=== PATIENT | female | born 1985 | race Caucasian/White ===

== ENCOUNTER 2019-07-31 23:04 | Emergency (ER) | payer SELFPAY ==
[2019-07-31 23:13] VITALS: BP 127/80; PULSE 76; RESP 18; TEMP 36.6; O2SAT 100; BMI 29.3
--- NOTE | 2019-07-31 23:15 | W.ED.UPPEXIN ---
HPI - Extremity Injury (Upper) General: Chief Complaint: Wound/Laceration Stated Complaint: L THUMB INJURY Time Seen by Provider: 07/31/19 23:13 History of Present Illness: HPI narrative: injury to left finger, occured prior to arrival. Patient reports that she was trying to open up a bottle with a knife and it slipped and cut her dorsal left thumb. Patient appears well. Patient appears in no acute distress. Review of Systems General: Reports: 10 or more systems reviewed and unremarkable except in HPI and below Skin/Breast: Reports: other (laceration) PFSH ED PFSH: Statuses (acute, chronic, etc) shown below reflect problem list status as previously entered and may not be historically accurate Social History Smoking and tobacco status: never smoked Physical Exam Const: COMMON NORMALS: no apparent distress and oriented x3 GENERAL APPEARANCE: cooperative HENMT: COMMON NORMALS: normocephalic, external ears normal, EAC's normal, TM's normal bilaterally and external nose normal HEAD & SCALP: normal to inspection and normocephalic FACE & SINUS: normal facial exam NOSE: external nose normal GENERAL EAR: hearing not grossly impaired EXTERNAL EAR: Yes external ears normal EXTERNAL AUDITORY CANAL: EAC's normal TYMPANIC MEMBRANE: TM's normal bilaterally MOUTH: oral and palatal mucosa normal THROAT: posterior oropharynx normal Eye: COMMON NORMALS: PERRL and EOMs intact bilaterally PUPIL: Yes PERRL Neck/C-Spine: COMMON NORMALS: full ROM and no lymphadenopathy Lymph: LYMPHATIC: no lymphedema noted Chest: COMMONS NORMALS: inspection of chest normal and palpation of chest normal Resp: COMMON NORMALS: normal respiratory effort and clear to auscultation bilaterally AUSCULTATION: clear to auscultation bilaterally Cardio: COMMON NORMALS: regular rate and regular rhythm RATE: regular rate RHYTHM: regular rhythm GI: COMMON NORMALS: normal to inspection, nondistended, normoactive bowel sounds and non-tender : COMMON NORMALS: Yes no CVA tenderness BLADDER/KIDNEY EXAM: Yes no CVA tenderness Back/Pelvis: COMMON NORMALS: no CVA tenderness and thoracic and lumbar spine normal to inspection Extremity: COMMON NORMALS: normal to inspection GENERAL: No edema Neuro: COMMON NORMALS: oriented x3, moves all extremities and no focal motor deficits Psych: COMMON NORMALS: mental status grossly normal and cooperative Skin: COMMON NORMALS: no rashes or lesions noted NARRATIVE SKIN EXAM: 2 cm laceration is noted to the dorsal left thumb. GENERAL SKIN EXAM: no rashes or lesions noted Procedures Laceration Laceration 1: Site: hand (left thumb) Side (If applicable): left Size (cm): 2 Description: linear Depth: simple, single layer Local Anesthetic: lidocaine 1% Amount of anesthesia used (mL): 2 Pre-repair: wound explored Skin layer closed with: nylon Size (cm): 5-0 Number of sutures: 3 Technique: simple, interrupted Course Vital Signs: Vital signs: Vital Signs Temperature 98.0 F 08/01/19 00:30 Pulse Rate 76 08/01/19 00:30 Respiratory Rate 16 08/01/19 00:30 Blood Pressure 120/82 08/01/19 00:30 Pulse Oximetry 100 08/01/19 00:30 MDM - Extremity Injury (Upper) MDM Narrative: Medical decision making narrative: Patient comes in due to an injury to her left thumb. On exam we note a 2 cm laceration to the dorsal left thumb. No foreign body was noted. Good range of motion of the finger was noted. Differential diagnosis includes fracture, sprain, laceration, tendon injury. Reviewed exam with patient recommended closure with stitches due to the area of wound. Patient agreed to plan, 3 sutures were used to close wound. Patient tolerated well. Reviewed postprocedure care and need for follow-up. Patient reported understanding. Discharge Plan Discharge Patient Disposition: Home, Self-Care Clinical Impression: Laceration Condition: Stable Prescriptions: No Action levothyroxine 25 mcg Tablet 25 mcg PO DAILY RF: 0 Discharge Orders: Discharge Order (Routine); Ordered 08/01/19 Ordered By: Darius Starks Referrals: Betsy Carey DO [Primary Care Provider] - Discharge Diet: Usual diet Discharge Activity: Resume usual activity Patient Instructions: Laceration (ED) Activity Restrictions/Additional Instructions: Keep wound clean and dry for 2 days After that you may get wet occasionally, but try to keep as dry as possible Sutures out in 7 days Follow-up as needed Return to ER for high fever or redness and swelling Discharge Date/Time: 08/01/19 00:23 Coding Level of Care Code ED Paid [employer] for [employer] [facility]arro Exam Problem Focused
[2019-07-31] MEDS: lidocaine 1% INJ 20 mL INTRADERMA (23:57)
[2019-07-31 23:58] VITALS: BP 127/80; PULSE 76; RESP 14; TEMP 36.7; O2SAT 100
[2019-08-01 00:30] VITALS: BP 120/82; PULSE 76; RESP 16; TEMP 36.7; O2SAT 100
== END 2019-08-01 00:23 | disposition home or self-care (01) ==
PROVIDERS: Emergency Provider Nurse Practitioner Family; Family Provider Family Medicine; PCP Family Medicine
DX: S61.012A Laceration without foreign body of left thumb without damage to nail, initial encounter (principal); W26.0XXA Contact with knife, initial encounter
CPT/HCPCS: 12001; 96372; 99281; 99283; J2001